=== PATIENT | male | born 1970 | race Caucasian/White ===

== ENCOUNTER 2018-04-22 15:01 | Emergency (ER) | payer MEDICARE ==
[~2018-04-22] VITALS: Ht 185.4 cm; Wt 202.7 kg
[~2018-04-22 15:01] MED LIST: ASPIRIN325 MG PO; BACTRIM 400-801 TAB PO; BUMEX2 MG PO; CARAFATE1 G PO; CYCLOBENZAPRINE10 MG PO; HYDROCODONE-APA1 TAB PO; K-DUR20 MEQ PO; LASIX40 MG PO; MICARDIS HCT 81 EACH PO; NEURONTIN800 MG PO; NITROSTAT0.4 MG SL; PROTONIX40 MG PO
[2018-04-22 15:07] VITALS: Ht 185.4 cm; Wt 202.7 kg
[2018-04-22 15:22] LABS: BASOPHILS 0.1 % (0-2); EOSINOPHILS 2.7 % (0-7); HEMOGLOBIN 10.1 g/dL (13.5-17.5); IMMATURE GRANULOCYTES 0.1 % (0-5); MCH 25.3 pg (26.0-34.0); MCHC 30.6 g/dL (31.0-37.0); MCV 82.7 fL (80.0-100.0); MEAN PLATELET VOLUME 9.7 fL (7.4-10.4); NEUTROPHILS 70.1 % (40-80); PLATELET COUNT 312 10x3/uL (130-400); RBC 3.99 10x6/uL (4.20-6.10); RDW 17.6 % (11.5-14.5); WBC 6.8 10x3/uL (4.8-10.8)
[2018-04-22 15:37] LABS: ALBUMIN 3.1 g/dL (3.4-5.0); ALKALINE PHOSPHATASE 99 U/L (46-116); ALT (SGPT) 21 U/L (10-68); BILIRUBIN - TOTAL 0.42 mg/dL (0.2-1.3); CALC OSMOLALITY 279 mosm/kg (275-300); CALCIUM 8.5 mg/dL (8.5-10.1); CARBON DIOXIDE 27.5 mmol/L (21.0-32.0); CHLORIDE - SERUM 105 mmol/L (98-107); CREATININE - SERUM 0.8 mg/dL (0.6-1.3); GLUCOSE 111 mg/dL (74-106); POTASSIUM - SERUM 3.9 mmol/L (3.5-5.1); PROTEIN - SERUM 7.6 g/dL (6.4-8.2); SODIUM 139 mmol/L (136-145); UREA NITROGEN 14 mg/dL (7-18); eGFR NON AFRICAN AMERICAN > 90 mL/min (90-120)
[2018-04-22 15:48] LABS: APTT 31.4 SECONDS (22.8-39.4); INR 1.11 (0.85-1.17); PROTIME 13.9 SECONDS (11.6-15.0)
[2018-04-22 16:02] LABS: CKMB 0.6 U/L (0.0-3.6); LIPASE 82 U/L (73-393); TROPONIN-I < 0.017 ng/mL (0.000-0.060)
[2018-04-22] MEDS ORDERED: ZOFRAN ODT4 MG/UDTAB PO (20:17)
[2018-04-22 20:44] VITALS: BP 137/47
[2018-06-03] MEDS ORDERED: FLOMAX0.4 MG PO (09:57)
[2018-06-03] MEDS ORDERED: HYZAAR 100-25 T1 TAB PO (09:58)
[2018-06-03] MEDS ORDERED: FLUTICASONE PRO16 GM NASAL (09:59)
[2018-06-03] MEDS ORDERED: CELEXA40 MG PO (09:59)
[2018-06-03] MEDS ORDERED: IBUPROFEN800 MG PO (09:59)
== END 2018-04-22 20:44 | disposition home or self-care (01) ==
LOC: D.ER 15:01
PROVIDERS: Family Medicine
DX: R07.9 Chest pain, unspecified (principal); Z98.84 Bariatric surgery status; R06.02 Shortness of breath; I10 Essential (primary) hypertension; E11.9 Type 2 diabetes mellitus without complications

== ENCOUNTER → 2018-04-30 08:40 | Outpatient (CLI) | payer MEDICARE ==
[2018-04-22 15:07] VITALS: BMI 58.9
[~2018-04-30 08:40] MED LIST changes: +AMOXICILLIN500 M1 PO; +CELEXA40 MG PO; +FLOMAX0.4 MG PO; +FLUTICASONE PRO16 GM NASAL; +HYZAAR 100-25 T1 TAB PO; +IBUPROFEN800 MG PO; +NORCO 10-325 TA1 TAB PO; +ZOFRAN ODT4 MG/UDTAB PO
== END | disposition home or self-care (01) ==
LOC: D.NM 08:40
DX: R10.11 Right upper quadrant pain (principal)

== ENCOUNTER 2018-06-04 05:40 | Day surgery (SDC) | payer MEDICARE, MEDICAID ==
[2018-06-03 11:03] LABS: HEMOGLOBIN 10.5 g/dL (13.5-17.5); MCH 25.3 pg (26.0-34.0); MCHC 30.9 g/dL (31.0-37.0); MCV 81.9 fL (80.0-100.0); MEAN PLATELET VOLUME 9.3 fL (7.4-10.4); RBC 4.15 10x6/uL (4.20-6.10); RDW 15.6 % (11.5-14.5); WBC 7.5 10x3/uL (4.8-10.8)
[2018-06-03 11:21] LABS: CALC OSMOLALITY 274 mosm/kg (275-300); CALCIUM 8.3 mg/dL (8.5-10.1); CARBON DIOXIDE 24.4 mmol/L (21.0-32.0); CHLORIDE - SERUM 105 mmol/L (98-107); CREATININE - SERUM 0.9 mg/dL (0.6-1.3); GLUCOSE 102 mg/dL (74-106); POTASSIUM - SERUM 4.1 mmol/L (3.5-5.1); SODIUM 136 mmol/L (136-145); UREA NITROGEN 20 mg/dL (7-18); eGFR NON AFRICAN AMERICAN > 90 mL/min (90-120)
[~2018-06-04] VITALS: Ht 185.4 cm; Wt 205.5 kg
--- NOTE | ~2018-06-04 | OP ---
PATIENT NAME: LYNNETTE CABEZAS MEDICAL RECORD: [id number] :68 LOCATION:[facility] ADMISSION DATE: SURGEON: LYNNETTE ROWE MD DATE OF OPERATION: 06/04/2018 SURGEON: Lynnette Rowe MD [employer] TE[employer]ER: Yessica Mckeon APRN PREOPERATIVE DIAGNOSES: 1. Symptomatic cholelithiasis. 2. Body mass index of 60 to 69.9. 3. History of gastric bypass. 4. History of incisional hernia repair with mesh. PROCEDURE PERFORMED: 1. Laparoscopic cholecystectomy. 2. Lysis of adhesions requiring greater than 50% of the operative time. SPECIMENS: Case was clean contaminated. ESTIMATED BLOOD LOSS: 75 cc. OPERATIVE COURSE: After consent was obtained, the patient was taken to the operating room and placed in supine position on the operating table. Next, general anesthesia was given via endotracheal intubation after a timeout was performed to confirm the correct patient and procedure. The case was especially difficult due to the patient's obesity as well as previous open gastric bypass and incisional hernia repair with PTFE mesh. At this time, it was decided to place a local anesthetic, was injected in the right upper quadrant in the midclavicular line. A stab incision was made with 11-blade scalpel. Using a 5-mm bladeless optical trocar, the abdomen was entered under direct laparoscopic vision. There were dense adhesions noted throughout the entire abdominal wall. A second trocar was placed into the right lateral quadrant in the anterior axillary line. Approximately, 30 to 45 minutes was spent performing laparoscopic lysis of adhesions in the right upper quadrant once. After 45 minutes, a subxiphoid 11-mm trocars will be placed under direct laparoscopic vision. Again, dissection continued in the midline until a 5-mm trocar could be placed above the umbilicus under direct laparoscopic vision. At this time, the fundus of gallbladder was grasped and retracted cephalad. The infundibulum was grasped and retracted laterally. Lysis of adhesions on the gallbladder was performed with electrocautery. Next, the peritoneum was incised using electrocautery. Blunt dissection was performed until the critical view was obtained, with cystic duct lateral, cystic artery medial, and liver in the posterior window. Three clips were placed in the proximal cystic duct, 1 clip distal, 2 clips placed in the proximal cystic artery, 1 clip distal. The duct and artery were transected with laparoscopic Metzenbaum scissors. The remaining portion of the gallbladder was dissected off the liver bed using electrocautery. Once complete, it was grasped with the tenaculum and removed through the 11-mm trocar and sent for permanent pathology. The operative field was copiously irrigated and suctioned. Careful attention was paid to hemostasis, which was obtained in the liver bed using electrocautery. The operative field was inspected. Three clips were in place in the cystic duct and two placed in the cystic artery. No evidence of bowel injury. No evidence of bleeding. At this time, all remaining instruments removed. The abdomen was desufflated. [facility] OPERATIVE REPORT [id number] LYNNETTE CABEZAS removed. Skin was closed with 4-0 Monocryl, Mastisol and Steri-Strips. At the end of the case, all needle and instrument counts were correct. No complications occurred. The patient was extubated and transferred to the PACU in stable condition. 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
[~2018-06-04 05:40] MED LIST changes: -AMOXICILLIN500 M1 PO; -NORCO 10-325 TA1 TAB PO
[2018-06-04] MEDS ORDERED: AMOXICILLIN500 M1 PO (07:35)
[2018-06-04 07:37] VITALS: BP 113/64; BMI 59.9
[2018-06-04 07:43] VITALS: BP 113/64; Ht 185.4 cm; Wt 205.5 kg
[2018-06-04] MEDS ORDERED: NORCO 10-325 TA1 TAB PO (10:18)
== END 2018-06-04 13:35 | disposition home or self-care (01) ==
LOC: D.OPS 05:40 → D.PAN 12:00 → D.OPS 13:35
PROVIDERS: Anesthesiology
DX: K80.10 Calculus of gallbladder with chronic cholecystitis without obstruction (principal); K66.0 Peritoneal adhesions (postprocedural) (postinfection); Z98.84 Bariatric surgery status; E66.9 Obesity, unspecified; Z68.44 Body mass index [BMI] 60.0-69.9, adult; Z01.812 Encounter for preprocedural laboratory examination

== ENCOUNTER 2021-03-24 17:54 | Emergency (ER) | payer MEDICARE, MEDICAID ==
[~2021-03-24] VITALS: Ht 185.4 cm; Wt 180.5 kg
[~2021-03-24 17:54] MED LIST changes: +AMOXICILLIN500 M1 PO; +NORCO 10-325 TA1 TAB PO
[2021-03-24 18:01] VITALS: Ht 185.4 cm; Wt 180.5 kg
[2021-03-24 18:46] LABS: BASOPHILS 0.7 % (0-2); EOSINOPHILS 3.6 % (0-7); HEMATOCRIT 38.5 % (42.0-54.0); HEMOGLOBIN 12.1 g/dL (13.5-17.5); LYMPHOCYTES 26.4 % (15-50); MCH 27.2 pg (26.0-34.0); MCHC 31.5 g/dL (31.0-37.0); MCV 86.2 fL (80.0-100.0); MONOCYTES 9.4 % (2-11); NEUTROPHILS 59.9 % (40-80); PLATELET COUNT 316 10x3/uL (130-400); RBC 4.47 10x6/uL (4.20-6.10); RDW 16.4 % (11.5-14.5); WBC 7.3 10x3/uL (4.8-10.8)
[2021-03-24 18:57] LABS: CALC OSMOLALITY 276 mosm/kg (275-300); CALCIUM 8.7 mg/dL (8.5-10.1); CHLORIDE - SERUM 103 mmol/L (98-107); GLUCOSE 110 mg/dL (74-106); POTASSIUM - SERUM 4.1 mmol/L (3.5-5.1); SODIUM 137 mmol/L (136-145); UREA NITROGEN 17 mg/dL (7-18); eGFR NON AFRICAN AMERICAN 83 mL/min (90-120)
[2021-03-24 19:09] LABS: ALBUMIN 3.4 g/dL (3.4-5.0); ALKALINE PHOSPHATASE 149 U/L (30-120); ALT (SGPT) 43 U/L (10-68); BILIRUBIN - TOTAL 0.37 mg/dL (0.2-1.3); CKMB 0.5 U/L (0.0-3.6); CREATINE KINASE 57 UL (21-232); MAGNESIUM - SERUM 2.3 mg/dL (1.8-2.4); PROTEIN - SERUM 7.4 g/dL (6.4-8.2); TROPONIN-I < 0.017 ng/mL (0.000-0.060)
[2021-03-24 20:41] VITALS: BP 125/83
== END 2021-03-24 20:37 | disposition home or self-care (01) ==
LOC: D.ER 17:54
PROVIDERS: Family Medicine
DX: R07.9 Chest pain, unspecified (principal); E11.9 Type 2 diabetes mellitus without complications; I10 Essential (primary) hypertension; Z79.82 Long term (current) use of aspirin; R06.02 Shortness of breath